=== PATIENT | female | born 1970 | race Caucasian/White ===

== ENCOUNTER 2019-07-07 17:18 | Inpatient (IN) | payer MEDICAID ==
[~2019-07-07] VITALS: Ht 160 cm; Wt 60.6 kg
[~2019-07-07 17:18] MED LIST: CIPR-278 PO; METR500 PO; OMEP20 PO
[2019-07-07] MEDS ORDERED: POLY90PO MC (17:29)
[2019-07-07] MEDS ORDERED: SUCR1TAB PO (17:29)
[2019-07-07] MEDS ORDERED: DOCU-275 PO (17:29)
[2019-07-07] MEDS ORDERED: SODIUM CHLORIDE 0.9% 1,000 ML IV ONE ×2 (17:29→22:30)
[2019-07-07] MEDS ORDERED: ONDANSETRON HCL 4 MG/2 ML VIAL IVP ONE ×2 (17:30→18:45)
[2019-07-07 17:43] LABS: BASOPHILS % (AUTO) 0.4 % (0.0-2.0); EOSINOPHILS % (AUTO) 6.6 % (1.0-6.0); HEMATOCRIT 42.4 % (36-46); HEMOGLOBIN 14.1 g/dL (12.0-16.0); LYMPHOCYTES # (AUTO) 2.2 K/uL (1.0-4.8); LYMPHOCYTES % (AUTO) 37.8 % (22.0-44.0); MEAN CORPUSCULAR HEMOGLOBIN 28.4 pg (26.0-34.0); MEAN CORPUSCULAR HGB CONC 33.3 G/dL (31.0-37.0); MEAN CORPUSCULAR VOLUME 85 fL (80-100); MONOCYTES # (AUTO) 0.5 K/uL (0.1-1.0); MONOCYTES % (AUTO) 8.4 % (2.0-9.0); NEUTROPHILS # (AUTO) 2.7 K/uL (1.8-7.7); NEUTROPHILS % (AUTO) 46.8 % (40.0-70.0); PLATELET COUNT (AUTO) 300 K/uL (150-450); RED BLOOD CELL COUNT(AUTO) 4.97 MIL/uL (4.00-5.20); RED CELL DISTRIBUTION WIDTH 13.2 % (11.5-14.5)
[2019-07-07 18:09] LABS: ANION GAP 7 mmol/L (8-16); CARBON DIOXIDE 28 mmol/L (22-29); CHLORIDE 104 mmol/L (98-107); GLOMERULAR FILTR. RATE CALC > 60 mL/min (>60); GLUCOSE,RANDOM 84 mg/dL (70-110); SODIUM SERUM 139 mmol/L (136-145); UREA NITROGEN, BLOOD 6 mg/dL (7-18)
[2019-07-07 18:14] LABS: ALANINE AMINOTRANSFERASE 724 U/L (12-78); ALBUMIN 3.9 g/dL (3.4-5.0); ALKALINE PHOSPHATASE 313 U/L (46-116); ASPARTATE AMINOTRANSFERASE 802 U/L (15-37); BILIRUBIN,TOTAL 0.7 mg/dL (0.1-1.0); LIPASE 195 U/L (73-393); TOTAL PROTEIN, SERUM 8.3 g/dL (6.4-8.2)
[2019-07-07 18:29] LABS: APPEARANCE,URINE CLEAR (CLEAR); BILIRUBIN,URINE NEGATIVE (NEGATIVE); GLUCOSE, URINE (UA) NEGATIVE (NEGATIVE); KETONES,URINE NEGATIVE (NEGATIVE); LEUKOCYTE ESTERASE ,URINE LARGE (NEGATIVE); NITRATE,URINE NEGATIVE (NEGATIVE); OCCULT BLOOD,URINE NEGATIVE (NEGATIVE); PROTEIN,URINE NEGATIVE (NEGATIVE)
[2019-07-07 18:39] LABS: BACTERIA,URINE None Seen /HPF (None Seen); RBC,URINE None Seen /HPF (0-2)
[2019-07-07 18:40] LABS: SQUAMOUS EPITHELIAL CELL,UR Few /LPF (None Seen)
[2019-07-07] MEDS ORDERED: MORPHINE SULFATE 4 MG/ML SYRINGE IVP ONE ×2 (18:45→21:00)
[2019-07-07] MEDS ORDERED: BARIUM SULFATE 0.1% SUSPENSION 450 ML BOTTLE PO ONE (18:45)
[2019-07-07] MEDS ORDERED: IOVERSOL 320 MG/ML 100 ML VIAL ONE (19:09)
[2019-07-07] MEDS ORDERED: SODIUM CHLORIDE 0.9% 100 ML ONE (19:09)
[2019-07-07] MEDS ORDERED: 0.9% SODIUM CHLORIDE 10 ML SYRINGE IVP PRN (21:00)
[2019-07-07] MEDS ORDERED: ONDANSETRON HCL 4 MG/2 ML VIAL IVP PRN (21:00)
[2019-07-07] MEDS ORDERED: ZOLPIDEM TARTRATE 5 MG TABLET PO PRN (22:30)
[2019-07-07] MEDS ORDERED: MAGNESIUM HYDROXIDE SUSPENSION 30 ML UDCUP PO PRN (22:30)
[2019-07-07] MEDS ORDERED: BISACODYL 10 MG RECTAL RECTAL SUPPOSITORY PR PRN (22:30)
[2019-07-07 22:47] VITALS: BP 123/72
[2019-07-08] MEDS: HEPARIN SODIUM,PORCINE 5,000 UNITS/ML VIAL SQ SCH ×4 (00:02→22:55)
[2019-07-08 04:55] VITALS: BP 112/68
[2019-07-08 07:25] VITALS: BP 114/70
[2019-07-08] MEDS: DOCUSATE SODIUM 100 MG CAPSULE PO SCH ×2 (08:36→19:53)
[2019-07-08] MEDS: PANTOPRAZOLE SODIUM 40 MG DR TABLET PO SCH (08:36)
[2019-07-08 11:10] VITALS: BP 112/78
[2019-07-08 12:51] LABS: MAGNESIUM 2.1 mg/dL (1.80-2.40); PHOSPHORUS 3.6 mg/dL (2.5-4.9)
[2019-07-08 15:18] VITALS: BP 114/73
[2019-07-08] MEDS ORDERED: LACTULOSE 20 GM/30 ML SOLUTION UDCUP PO ONE (16:30)
[2019-07-08 19:46] VITALS: BP 100/64
[2019-07-08] MEDS: ONDANSETRON HCL 4 MG/2 ML VIAL IVP PRN (22:48)
[2019-07-08] MEDS: MORPHINE SULFATE 2 MG/ML SYRINGE IVP PRN (22:49)
[2019-07-09] VITALS (7 sets, daily range): BP systolic 98–113; BP diastolic 62–74
[2019-07-09 07:03] LABS: ALANINE AMINOTRANSFERASE 459 U/L (12-78); ALBUMIN 3.3 g/dL (3.4-5.0); ALKALINE PHOSPHATASE 263 U/L (46-116); ANION GAP 7 mmol/L (8-16); ASPARTATE AMINOTRANSFERASE 199 U/L (15-37); BILIRUBIN,TOTAL 0.5 mg/dL (0.1-1.0); CALCIUM, TOTAL 8.6 mg/dL (8.8-10.5); CARBON DIOXIDE 28 mmol/L (22-29); CHLORIDE 104 mmol/L (98-107); GLOMERULAR FILTR. RATE CALC > 60 mL/min (>60); GLUCOSE,RANDOM 95 mg/dL (70-110); POTASSIUM 3.7 mmol/L (3.5-5.1); SODIUM SERUM 139 mmol/L (136-145); TOTAL PROTEIN, SERUM 7.2 g/dL (6.4-8.2); UREA NITROGEN, BLOOD 9 mg/dL (7-18)
[2019-07-09] MEDS: PANTOPRAZOLE SODIUM 40 MG DR TABLET PO SCH (08:13)
[2019-07-09] MEDS: ONDANSETRON HCL 4 MG/2 ML VIAL IVP PRN (08:13)
[2019-07-09] MEDS: HEPARIN SODIUM,PORCINE 5,000 UNITS/ML VIAL SQ SCH ×3 (08:14→23:45)
[2019-07-09] MEDS: DOCUSATE SODIUM 100 MG CAPSULE PO SCH ×2 (08:14→20:24)
[2019-07-09] MEDS: MORPHINE SULFATE 2 MG/ML SYRINGE IVP PRN (10:20)
[2019-07-09] MEDS: MINERAL OIL 133 ML ENEMA PR SCH (13:11)
[2019-07-09 15:15] LABS: AMPHET/METH SCREEN,URINE NEGATIVE (NEGATIVE); BARBITURATE SCREEN, URINE NEGATIVE (NEGATIVE); BENZODIAZEPINES SCREEN,URINE NEGATIVE (NEGATIVE); CANNABINOID SCREEN,URINE NEGATIVE (NEGATIVE); COCAINE SCREEN,URINE NEGATIVE (NEGATIVE); METHADONE SCREEN, URINE NEGATIVE (NEGATIVE); OPIATE SCREEN,URINE POSITIVE (NEGATIVE); PHENCYCLIDINE SCREEN,URINE NEGATIVE (NEGATIVE)
[2019-07-10 05:15] VITALS: BP 100/65
[2019-07-10 07:07] LABS: ALANINE AMINOTRANSFERASE 377 U/L (12-78); ALBUMIN 3.4 g/dL (3.4-5.0); ALKALINE PHOSPHATASE 263 U/L (46-116); ANION GAP 3 mmol/L (8-16); ASPARTATE AMINOTRANSFERASE 124 U/L (15-37); BILIRUBIN,TOTAL 0.4 mg/dL (0.1-1.0); CARBON DIOXIDE 32 mmol/L (22-29); CHLORIDE 103 mmol/L (98-107); CREATININE 0.77 mg/dL (0.60-1.30); GLOMERULAR FILTR. RATE CALC > 60 mL/min (>60); GLUCOSE,RANDOM 91 mg/dL (70-110); POTASSIUM 4.1 mmol/L (3.5-5.1); SODIUM SERUM 138 mmol/L (136-145); TOTAL PROTEIN, SERUM 7.5 g/dL (6.4-8.2); UREA NITROGEN, BLOOD 7 mg/dL (7-18)
[2019-07-10 08:00] VITALS: BP 117/71
[2019-07-10] MEDS: PANTOPRAZOLE SODIUM 40 MG DR TABLET PO SCH (08:07)
[2019-07-10] MEDS: DOCUSATE SODIUM 100 MG CAPSULE PO SCH (08:07)
[2019-07-10] MEDS: HEPARIN SODIUM,PORCINE 5,000 UNITS/ML VIAL SQ SCH ×2 (08:08→15:02)
[2019-07-10] MEDS: MINERAL OIL 133 ML ENEMA PR SCH (09:43)
[2019-07-10 11:40] VITALS: BP 107/65
[2019-07-10 15:29] VITALS: BP 114/75
[2019-07-10] MEDS ORDERED: BISA10SU11 PR (15:56)
[2019-07-10] MEDS ORDERED: CEPH250 PO (15:59)
== END 2019-07-10 16:17 | disposition home or self-care (01) | DRG 389 ==
LOC: EMS 17:20 → 4E 21:00
PROVIDERS: ADMIT Internal Medicine; ATTEND Internal Medicine
DX: K56.600 Partial intestinal obstruction, unspecified as to cause (principal); N39.0 Urinary tract infection, site not specified; R74.0 Nonspecific elevation of levels of transaminase and lactic acid dehydrogenase [LDH]; Z88.8 Allergy status to other drugs, medicaments and biological substances; Z91.012 Allergy to eggs; Z87.11 Personal history of peptic ulcer disease; Z90.710 Acquired absence of both cervix and uterus; Z90.49 Acquired absence of other specified parts of digestive tract; Z85.42 Personal history of malignant neoplasm of other parts of uterus; Z86.15 Personal history of latent tuberculosis infection
CPT/HCPCS: 74019; 74177; 76700; 80074; 80307; 83516; 83735; 84100; 87086; G0378; J1644; J2270; J2405; J7030; J7050